=== PATIENT | female | born 1980 | race Asian ===

== ENCOUNTER 2016-10-24 14:27 | Emergency (ER) | payer OTHER ==
[~2016-10-24] VITALS: Ht 162.6 cm; Wt 95.3 kg
[2016-10-24 18:25] VITALS: BP 140/86; TEMP 98.4
== END 2016-10-24 18:25 | disposition home or self-care (01) ==
LOC: ED 14:27
DX: G43.909 Migraine, unspecified, not intractable, without status migrainosus (principal)
CPT/HCPCS: 96372; 99283; J3030